=== PATIENT | male | born 1935 | race African-American/Black ===

== ENCOUNTER 2017-02-28 14:20 | Emergency (ER) | payer MEDICARE ==
[2017-02-28] MEDS ORDERED: cloNIDine 0.2 MG TAB ONE (14:47)
[2017-02-28 15:13] LABS: #Basophils 0.1 thou/uL (0.0-0.2); #Eosinphils 0.1 thou/uL (0.0-0.7); #Lymphocytes 1.5 thou/uL (1.20-3.40); #Monocytes 0.4 thou/uL (0.11-0.59); #Neutrophils 2.4 thou/uL (1.40-6.50); %Basophils 1.6 % (0.0-1.0); %Eosinophils 1.9 % (0.0-10.0); %Lymphocytes 33.7 % (21.0-51.0); %Monocytes 9.5 % (0.0-10.0); %Neutrophils 53.3 % (42.0-75.0); Hemoglobin 12.4 g/dL (14.0-18.0); Mean Corpuscular HGB CONC 31.3 g/dL (32.0-36.0); Mean Corpuscular Hemoglobin 26.7 pg (27.0-31.0); Mean Corpuscular Volume 85.2 fl (80.0-94.0); Platelet Count 124 thou/uL (130-400); RBC Distribution Width 13.5 % (11.5-14.5); Red Blood Cell (RBC) Count 4.64 mill/uL (4.70-6.10); White Blood Cell (WBC) Count 4.5 thou/uL (4.8-10.8)
[2017-02-28 15:18] LABS: Anion Gap 12 mmol/L (10-20); BUN (Urea Nitrogen) 19 mg/dL (8.4-25.7); Calc. Creatinine Clearance 0 mL/min (70-130); Calcium 8.8 mg/dL (7.8-10.44); Carbon Dioxide 29 mmol/L (23-31); Chloride 102 mmol/L (98-107); Estimated GFR-MDRD Greater than 90; Glucose 99 mg/dL (83-110); Potassium 3.4 mmol/L (3.5-5.1); Sodium 140 mmol/L (136-145)
[2017-02-28 15:23] LABS: CKMB 6.3 ng/mL (0-6.6); Troponin I 0.017 ng/mL (< 0.028)
== END 2017-02-28 15:39 | disposition home or self-care (01) ==
LOC: NAV ERS 14:20
DX: I10 Essential (primary) hypertension (principal); Z87.891 Personal history of nicotine dependence; Z79.82 Long term (current) use of aspirin; Z79.899 Other long term (current) drug therapy
CPT/HCPCS: 80048; 82553; 84484; 85025

== ENCOUNTER 2018-10-08 17:13 | Emergency (ER) | payer MEDICARE ==
[2018-10-08] MEDS ORDERED: Aspirin Chewable 81 MG TAB ONE (17:38)
[2018-10-08] MEDS ORDERED: Nitroglycerin 0.4 MG TAB (25 Tab Bottle) ONE (17:38)
[2018-10-08 17:49] LABS: #Basophils 0.1 thou/uL (0.0-0.2); #Eosinphils 0.1 thou/uL (0.0-0.7); #Lymphocytes 1.6 thou/uL (1.20-3.40); #Monocytes 0.4 thou/uL (0.11-0.59); #Neutrophils 2.1 thou/uL (1.40-6.50); %Basophils 1.7 % (0.0-1.0); %Eosinophils 2.4 % (0.0-10.0); %Lymphocytes 37.6 % (21.0-51.0); %Monocytes 8.9 % (0.0-10.0); %Neutrophils 49.4 % (42.0-75.0); Hemoglobin 12.8 g/dL (14.0-18.0); Mean Corpuscular HGB CONC 31.1 g/dL (32.0-36.0); Mean Corpuscular Hemoglobin 26.6 pg (27.0-31.0); Mean Corpuscular Volume 85.6 fL (78.0-98.0); Mean Platelet Volume 9.9 fL (7.4-10.4); Platelet Count 185 thou/uL (130-400); RBC Distribution Width 13.3 % (11.5-14.5); Red Blood Cell (RBC) Count 4.81 mill/uL (4.70-6.10); White Blood Cell (WBC) Count 4.3 thou/uL (4.8-10.8)
--- NOTE | 2018-10-08 18:02 | RAD ---
Portable frontal chest radiograph: 10/08/2018 COMPARISON: 04/20/2014 HISTORY: Chest pain FINDINGS: Lungs are clear. Heart and mediastinal contours are stable. There is atherosclerotic calcif ication of the aortic arch. IMPRESSION: No acute findings.
[2018-10-08 18:04] LABS: ALT (SGPT) 16 U/L (8-55); AST (SGOT) 22 U/L (5-34); Albumin 4.1 g/dL (3.4-4.8); Alkaline Phosphatase 60 U/L (40-150); Anion Gap 14 mmol/L (10-20); BUN (Urea Nitrogen) 16 mg/dL (8.4-25.7); Bilirubin, Total 0.3 mg/dL (0.2-1.2); CK (CPK) 381 U/L (30-200); Calc. Creatinine Clearance 0 mL/min (70-130); Calcium 9.9 mg/dL (7.8-10.44); Carbon Dioxide 28 mmol/L (23-31); Chloride 104 mmol/L (98-107); Estimated GFR-MDRD 73; Globulin 3.6 g/dL (2.4-3.5); Glucose 114 mg/dL (83-110); Lipase 89 U/L (8-78); Potassium 3.3 mmol/L (3.5-5.1); Protein, Total 7.7 g/dL (5.8-8.1); Sodium 143 mmol/L (136-145)
== END 2018-10-08 19:06 | disposition short-term general hospital (02) ==
LOC: NAV ERS 17:13
DX: R07.9 Chest pain, unspecified (principal); I10 Essential (primary) hypertension; N40.0 Benign prostatic hyperplasia without lower urinary tract symptoms; Z87.891 Personal history of nicotine dependence; Z79.82 Long term (current) use of aspirin; Z79.899 Other long term (current) drug therapy
CPT/HCPCS: 71045; 80053; 82550; 83690; 83880; 84484; 85025; 93005

== ENCOUNTER 2020-02-21 23:05 | Inpatient (IN) | payer MEDICARE, OTHER ==
[2020-02-21] MEDS ORDERED: cloNIDine 0.1 MG TAB PO PRN (23:45)
[2020-02-22] MEDS: Thiamine 100 MG TAB PO SCH (08:38)
[2020-02-22] MEDS: Calcium Carbonate 600 MG + Vit D TAB PO SCH (08:38)
[2020-02-22] MEDS: Finasteride 5 MG TAB PO SCH (08:38)
[2020-02-22] MEDS: Potassium Chloride 10 MEQ TAB PO SCH (08:38)
[2020-02-22] MEDS: Aspirin 81 mg Enteric Coated Tablet PO SCH ×2 (08:38→20:58)
[2020-02-22] MEDS: Lisinopril 20 MG TAB PO SCH (08:39)
[2020-02-22] MEDS: Senokot S 8.6-50 MG TAB PO SCH ×3 (08:40→20:55)
[2020-02-22] MEDS: Hydrochlorothiazide 25 MG TAB PO SCH (08:41)
[2020-02-22] MEDS: Folic Acid 1 MG TAB PO SCH (08:41)
[2020-02-22] MEDS: Ferrous Gluconate 324 MG TAB PO SCH ×2 (08:59→17:14)
[2020-02-22] MEDS ORDERED: Amlodipine 5 MG TAB PO SCH (09:00)
[2020-02-22] MEDS ORDERED: HYDROcodone/Acetaminophen 5/325 mg Tablet PO PRN ×2 (16:06)
--- NOTE | 2020-02-22 16:43 | HP ---
PRINCIPAL DIAGNOSIS: Osteoarthritis status post left hip replacement for physical therapy. BRIEF HISTORY: This is a pleasant 84-year-old male who recently underwent elective left hip replacement. He apparently did have some postoperative issues with blood pressure, requiring IV hydralazine. He was felt to be a candidate for inpatient rehabilitation and transferred here. He apparently did have episodes of confusion, requiring Seroquel. His Benadryl was discontinued. He apparently drinks 3 to 4 drinks a week, so was started on thiamine and folic acid. Currently, the patient is resting in bed and denies any concerns. He states that he got here late last night and is tired. He apparently refused his lab work this morning. No fever or chills. Pain is well controlled. No family at bedside. PAST MEDICAL HISTORY: 1. Hypertension. 2. Benign prostatic hypertrophy. 3. Seasonal allergic rhinitis. 4. Chronic diastolic congestive heart failure. 5. Osteoarthritis. PAST SURGICAL HISTORY: 1. Lumbar spine surgery in 2013. 2. Recent left total hip replacement. PSYCHOSOCIAL HISTORY: Drinks 3 to 4 drinks a day, but he does that about 3 to 4 times a week and not every day of the week. Denies any tobacco or recreational drug abuse. Active and independent prior to this episode. FAMILY HISTORY: Noncontributory to current admission. ALLERGIES: NO KNOWN DRUG ALLERGIES. MEDICATIONS: He has been transferred here on the following medications. 1. Norvasc 10 mg daily. 2. Ecotrin 81 mg b.i.d. 3. Calcium with vitamin D daily. 4. Iron sulfate 324 b.i.d. 5. Proscar 5 mg daily. 6. Folic acid 1 mg daily. 7. Hydrochlorothiazide 25 daily. 8. Zestril 20 daily. 9. Toprol-XL 25 mg daily. 10. Potassium 10 mEq daily. 11. Seroquel 12.5 at bedtime. 12. Flomax 0.8 mg at bedtime. 13. Thiamine 100 mg daily. REVIEW OF SYSTEMS: GENERAL: The patient denies any fever or changes in weight or bowel habits. CARDIOVASCULAR SYSTEM: Denies any chest pain, shortness of breath, palpitations, PND, orthopnea, or pedal edema. RESPIRATORY SYSTEM: Denies any chronic cough, expectoration, or pleuritic-type chest pain. GASTROINTESTINAL SYSTEM: Denies any nausea, vomiting, diarrhea, constipation, hematemesis, melena, or hematochezia. GENITOURINARY SYSTEM: He does have occasional frequency and urgency, but denies any dysuria or hematuria. EXTREMITIES: Does complain of left hip and leg pain. CENTRAL NERVOUS SYSTEM: Denies any focal numbness, weakness, or fainting spells. HEENT: Denies any changes with speech, vision, hearing, or swallowing. SKIN: Denies any rash. PHYSICAL EXAMINATION: GENERAL: A pleasant 84-year-old male, resting comfortably in bed and denies any concerns. He is alert, awake, and oriented x3. VITAL SIGNS: He is afebrile, heart rate is 98, respirations 20, oxygen saturation 98% on room air, and blood pressure 134/82. HEENT: Normocephalic and atraumatic. Pupils are equally reacting to light and accommodation. Extraocular muscles intact. No JVD, thyromegaly, cervical adenopathy, or throat exudates. No carotid bruits. CARDIOVASCULAR SYSTEM: S1 and S2 plus. Rate and rhythm regular. RESPIRATORY SYSTEM: Normal vesicular breath sounds heard in all lung kang. ABDOMEN: Soft and nontender. Bowel sounds heard in all quadrants. EXTREMITIES: Without cyanosis or clubbing. Left hip incision with dressing. CENTRAL NERVOUS SYSTEM: Generalized weakness, otherwise nonfocal. LABORATORY VALUES: From this morning, the patient did refuse lab work. Last one shows the hemoglobin and hematocrit of 10 and 31.2. IMPRESSION: 1. Osteoarthritis status post left hip replacement. 2. Hypertension. 3. Chronic diastolic congestive heart failure. 4. Seasonal allergic rhinitis. 5. Anemia, possibly due to acute blood loss. 6. Episodes of agitation and confusion. 7. Benign prostatic hypertrophy. PLAN: 1. Continue discharge medications from previous hospital. Make sure he is on pain medications. 2. Change timing on amlodipine to bedtime as all his blood pressure medicines are scheduled for the morning. 3. Orthopedic precautions and incision care. 4. DVT prophylaxis per Orthopedic recommendations. 5. Decubitus precautions. 6. Stress ulcer prophylaxis. 7. PT/OT eval and treat. 8. Routine laboratory values. 9. Nutritional support with heart healthy diet. 10. Estimated length of stay 7 to 10 days. 11. No family at bedside. 12. Discussed with the patient in detail. All questions answered. Job ID: [id number]
[2020-02-22] MEDS ORDERED: Amlodipine 5 MG TAB ONE (20:53)
[2020-02-22] MEDS: Tamsulosin HCl 0.4 MG CAP PO SCH (20:56)
[2020-02-22] MEDS: Amlodipine 5 MG TAB PO SCH (20:57)
[2020-02-22] MEDS: Acetaminophen 500 MG TAB PO PRN (20:57)
[2020-02-23 03:51] VITALS: BMI 34.4
[2020-02-23] MEDS: Aspirin 81 mg Enteric Coated Tablet PO SCH ×2 (08:46→21:19)
[2020-02-23] MEDS: Calcium Carbonate 600 MG + Vit D TAB PO SCH (08:46)
[2020-02-23] MEDS: Finasteride 5 MG TAB PO SCH (08:47)
[2020-02-23] MEDS: Folic Acid 1 MG TAB PO SCH (08:47)
[2020-02-23] MEDS: Potassium Chloride 10 MEQ TAB PO SCH (08:47)
[2020-02-23] MEDS: Ferrous Gluconate 324 MG TAB PO SCH ×2 (08:47→17:37)
[2020-02-23] MEDS: Thiamine 100 MG TAB PO SCH (08:47)
[2020-02-23] MEDS: Lisinopril 20 MG TAB PO SCH (08:47)
[2020-02-23] MEDS: Hydrochlorothiazide 25 MG TAB PO SCH (08:47)
[2020-02-23] MEDS: Senokot S 8.6-50 MG TAB PO SCH ×2 (08:47→21:19)
--- NOTE | 2020-02-23 16:02 | PRG ---
DATE OF SERVICE: 02/23/2020 SUBJECTIVE: Mr. Marion is up in his chair. He apparently had a good lunch. He states that he is feeling better. He denies any questions or concerns. He is agreeable for blood test tomorrow as baseline. OBJECTIVE: VITAL SIGNS: He is afebrile. Heart rate is 86, respirations 18, oxygen saturation 94% on room air, blood pressure 140/66. CARDIOVASCULAR: S1, S2 plus. RESPIRATORY: Normal vesicular breath sounds. ABDOMEN: Soft, nontender. Bowel sounds heard in all quadrants. EXTREMITIES: Without cyanosis or clubbing. Trace left leg edema. Left hip incision with dressing. CENTRAL NERVOUS SYSTEM: Generalized weakness. IMPRESSION: 1. Hypertension. 2. Osteoarthritis, status post left hip arthroplasty. 3. Benign prostatic hypertrophy. 4. Seasonal allergic rhinitis. 5. Chronic diastolic congestive heart failure. PLAN: 1. Continue current medications. 2. Heart-healthy diet. 3. Orthopedic precautions. 4. Morales catheter care. 5. Voiding trial probably on Monday. 6. Continue Flomax. 7. Physical therapy. 8. Recheck CBC and BMP tomorrow. 9. Discussed with the patient in detail. All questions answered. Job ID: [id number]
[2020-02-23] MEDS: Tamsulosin HCl 0.4 MG CAP PO SCH (21:18)
[2020-02-23] MEDS: Amlodipine 5 MG TAB PO SCH (21:19)
[2020-02-24 05:23] LABS: #Basophils 0.1 thou/uL (0.0-0.2); #Eosinphils 0.1 thou/uL (0.0-0.7); #Lymphocytes 1.5 thou/uL (1.20-3.40); #Monocytes 0.5 thou/uL (0.11-0.59); #Neutrophils 2.6 thou/uL (1.40-6.50); %Basophils 1.6 % (0.0-1.0); %Eosinophils 2.9 % (0.0-10.0); %Lymphocytes 32.2 % (21.0-51.0); %Monocytes 9.5 % (0.0-10.0); %Neutrophils 53.9 % (42.0-75.0); Hemoglobin 9.1 g/dL (14.0-18.0); Mean Corpuscular HGB CONC 31.8 g/dL (32.0-36.0); Mean Corpuscular Hemoglobin 27.1 pg (27.0-31.0); Mean Corpuscular Volume 85.1 fL (78.0-98.0); Mean Platelet Volume 8.1 fL (7.4-10.4); Platelet Count 141 thou/uL (130-400); Red Blood Cell (RBC) Count 3.37 mill/uL (4.70-6.10); White Blood Cell (WBC) Count 4.8 thou/uL (4.8-10.8)
[2020-02-24 05:38] LABS: Anion Gap 12 mmol/L (10-20); BUN (Urea Nitrogen) 15 mg/dL (8.4-25.7); Calc. Creatinine Clearance 96 mL/min (70-130); Calcium 8.6 mg/dL (7.8-10.44); Carbon Dioxide 30 mmol/L (23-31); Chloride 103 mmol/L (98-107); Glucose 99 mg/dL (83-110); Potassium 3.1 mmol/L (3.5-5.1); Sodium 142 mmol/L (136-145)
[2020-02-24] MEDS: Ferrous Gluconate 324 MG TAB PO SCH ×2 (09:33→17:15)
[2020-02-24] MEDS: Senokot S 8.6-50 MG TAB PO SCH ×2 (09:34→21:24)
[2020-02-24] MEDS: Calcium Carbonate 600 MG + Vit D TAB PO SCH (09:34)
[2020-02-24] MEDS: Potassium Chloride 10 MEQ TAB PO SCH (09:35)
[2020-02-24] MEDS: Lisinopril 20 MG TAB PO SCH (09:35)
[2020-02-24] MEDS: Hydrochlorothiazide 25 MG TAB PO SCH (09:35)
[2020-02-24] MEDS: Folic Acid 1 MG TAB PO SCH (09:36)
[2020-02-24] MEDS: Aspirin 81 mg Enteric Coated Tablet PO SCH ×2 (09:36→21:24)
[2020-02-24] MEDS: Thiamine 100 MG TAB PO SCH (09:36)
[2020-02-24] MEDS: Acetaminophen 500 MG TAB PO PRN (09:37)
[2020-02-24] MEDS: Finasteride 5 MG TAB PO SCH (09:39)
--- NOTE | 2020-02-24 13:07 | PRG ---
DATE OF SERVICE: 02/24/2020 SUBJECTIVE: Mr. Marion is up in his chair. He just finished his lunch. He apparently had both sessions of therapy this morning. He cannot wait to get the Morales catheter out. Denies any questions or concerns. Pain is well controlled. No family at bedside. OBJECTIVE: VITAL SIGNS: He is afebrile, heart rate 80, respirations 18, oxygen saturation 93% on room air, and blood pressure 144/67. CARDIOVASCULAR SYSTEM: S1 and S2 plus. RESPIRATORY SYSTEM: Normal vesicular breath sounds. ABDOMEN: Soft, nontender. Bowel sounds heard in all quadrants. EXTREMITIES: Without cyanosis or clubbing. CENTRAL NERVOUS SYSTEM: Generalized weakness, otherwise nonfocal. IMPRESSION: 1. Urinary retention, likely due to benign prostatic hypertrophy as a Morales catheter. 2. Hypertension. 3. Seasonal allergic rhinitis. 4. Chronic diastolic congestive heart failure. 5. Osteoarthritis. 6. Left hip replacement. PLAN: 1. Continue current medications. 2. Low-sodium diet. 3. Orthopedic precautions. 4. Incision care. 5. DVT prophylaxis per Orthopedic recommendations. 6. Morales catheter care. 7. Physical Therapy. 8. Routine laboratory values. 9. Anticipated discontinuing the Morales catheter soon. Job ID: [id number]
[2020-02-24] MEDS: Tamsulosin HCl 0.4 MG CAP PO SCH (21:24)
[2020-02-24] MEDS: Amlodipine 5 MG TAB PO SCH (21:25)
[2020-02-25] MEDS: Calcium Carbonate 600 MG + Vit D TAB PO SCH (08:31)
[2020-02-25] MEDS: Folic Acid 1 MG TAB PO SCH (08:32)
[2020-02-25] MEDS: Aspirin 81 mg Enteric Coated Tablet PO SCH ×2 (08:32→21:54)
[2020-02-25] MEDS: Lisinopril 20 MG TAB PO SCH (08:32)
[2020-02-25] MEDS: Potassium Chloride 10 MEQ TAB PO SCH (08:32)
[2020-02-25] MEDS: Ferrous Gluconate 324 MG TAB PO SCH ×2 (08:32→17:00)
[2020-02-25] MEDS: Acetaminophen 500 MG TAB PO PRN (08:33)
[2020-02-25] MEDS: Senokot S 8.6-50 MG TAB PO SCH ×2 (08:36→21:54)
[2020-02-25] MEDS: Hydrochlorothiazide 25 MG TAB PO SCH (08:37)
[2020-02-25] MEDS: Thiamine 100 MG TAB PO SCH (08:37)
[2020-02-25] MEDS: Finasteride 5 MG TAB PO SCH (08:38)
--- NOTE | 2020-02-25 13:16 | PRG ---
DATE OF SERVICE: 02/25/2020 SUBJECTIVE: Mr. Marion is up in his chair and he hates this very chair. He denies any other concerns or questions. OBJECTIVE: VITAL SIGNS: He is afebrile, heart rate 84, respirations 19, oxygen saturation 96% on room air, blood pressure 130/63. CARDIOVASCULAR SYSTEM: S1-S2 plus. RESPIRATORY SYSTEM: Normal vesicular breath sounds. ABDOMEN: Soft, nontender. Bowel sounds heard in all quadrants. EXTREMITIES: Without cyanosis or clubbing. Morales catheter in place. CENTRAL NERVOUS SYSTEM: Improving deconditioning. IMPRESSION: 1. Status post left hip replacement. 2. Osteoarthritis. 3. Hypertension. 4. Chronic diastolic congestive heart failure. 5. He is not allergic to rhinitis. 6. Possible benign prostatic hypertrophy. PLAN: 1. Continue current medications. 2. Nutritional support with low sodium diet. 3. Orthopedic precautions. 4. DVT prophylaxis per Orthopedic recommendations. 5. Decubitus precautions. 6. Stress ulcer prophylaxis. 7. Routine laboratory values. 8. Anticipate voiding trial tomorrow. Job ID: [id number]
[2020-02-25] MEDS: Amlodipine 5 MG TAB PO SCH (21:53)
[2020-02-25] MEDS: Tamsulosin HCl 0.4 MG CAP PO SCH (21:54)
[2020-02-26] MEDS: Folic Acid 1 MG TAB PO SCH (08:20)
[2020-02-26] MEDS: Finasteride 5 MG TAB PO SCH (08:20)
[2020-02-26] MEDS: Calcium Carbonate 600 MG + Vit D TAB PO SCH (08:20)
[2020-02-26] MEDS: Senokot S 8.6-50 MG TAB PO SCH ×2 (08:21→20:35)
[2020-02-26] MEDS: Aspirin 81 mg Enteric Coated Tablet PO SCH ×2 (08:21→20:35)
[2020-02-26] MEDS: Lisinopril 20 MG TAB PO SCH (08:21)
[2020-02-26] MEDS: Potassium Chloride 10 MEQ TAB PO SCH (08:21)
[2020-02-26] MEDS: Hydrochlorothiazide 25 MG TAB PO SCH (08:22)
[2020-02-26] MEDS: Ferrous Gluconate 324 MG TAB PO SCH ×2 (08:22→17:46)
[2020-02-26] MEDS: Thiamine 100 MG TAB PO SCH (08:22)
--- NOTE | 2020-02-26 13:03 | PRG ---
DATE OF SERVICE: 02/26/2020 SUBJECTIVE: Mr. Marion had the Morales catheter removed last night as it was . He has had no issues with voiding. His postvoid bladder scans have been pretty much close to 0. The patient is resting in bed and happy with his progress. OBJECTIVE: VITAL SIGNS: He is afebrile, heart rate 71, respirations 18, oxygen saturation 94% on room air, blood pressure 145/64. CARDIOVASCULAR SYSTEM: S1 and S2 plus. RESPIRATORY SYSTEM: Normal vesicular breath sounds. ABDOMEN: Soft, nontender. Bowel sounds heard in all quadrants. EXTREMITIES: Without cyanosis, clubbing. Hip incision with dressing. CENTRAL NERVOUS SYSTEM: Improving deconditioning. IMPRESSION: 1. Status post left hip arthroplasty. 2. Hypertension. 3. Chronic diastolic congestive heart failure. 4. Osteoarthritis. 5. Allergic rhinitis. 6. Benign prostatic hypertrophy. PLAN: 1. Continue current medications. 2. Nutritional support with low-sodium diet. 3. Monitor blood pressure and adjust medications. 4. DVT prophylaxis per Orthopedic's recommendations. 5. Decubitus precautions. 6. Stress ulcer prophylaxis. 7. Orthopedic precautions and incision care. 8. Recheck CBC and BMP tomorrow. 9. Dr. Holden on-call for 5 p.m. [email or web address]. Job ID: [id number]
[2020-02-26] MEDS: Tamsulosin HCl 0.4 MG CAP PO SCH (20:34)
[2020-02-26] MEDS: Amlodipine 5 MG TAB PO SCH (20:35)
[2020-02-27 05:40] LABS: Anion Gap 12 mmol/L (10-20); BUN (Urea Nitrogen) 15 mg/dL (8.4-25.7); Calc. Creatinine Clearance 93 mL/min (70-130); Calcium 8.8 mg/dL (7.8-10.44); Carbon Dioxide 30 mmol/L (23-31); Chloride 101 mmol/L (98-107); Glucose 101 mg/dL (83-110); Potassium 3.1 mmol/L (3.5-5.1); Sodium 140 mmol/L (136-145)
[2020-02-27 05:41] LABS: #Basophils 0.1 thou/uL (0.0-0.2); #Eosinphils 0.1 thou/uL (0.0-0.7); #Lymphocytes 1.4 thou/uL (1.20-3.40); #Monocytes 0.5 thou/uL (0.11-0.59); #Neutrophils 2.4 thou/uL (1.40-6.50); %Basophils 1.1 % (0.0-1.0); %Eosinophils 3.4 % (0.0-10.0); %Lymphocytes 31.2 % (21.0-51.0); %Monocytes 10.6 % (0.0-10.0); %Neutrophils 53.7 % (42.0-75.0); Hemoglobin 9.1 g/dL (14.0-18.0); Mean Corpuscular HGB CONC 31.4 g/dL (32.0-36.0); Mean Corpuscular Hemoglobin 26.8 pg (27.0-31.0); Mean Corpuscular Volume 85.4 fL (78.0-98.0); Mean Platelet Volume 7.4 fL (7.4-10.4); Platelet Count 186 thou/uL (130-400); RBC Distribution Width 14.2 % (11.5-14.5); Red Blood Cell (RBC) Count 3.38 mill/uL (4.70-6.10); White Blood Cell (WBC) Count 4.4 thou/uL (4.8-10.8)
[2020-02-27] MEDS: Aspirin 81 mg Enteric Coated Tablet PO SCH ×2 (08:06→20:52)
[2020-02-27] MEDS: Ferrous Gluconate 324 MG TAB PO SCH ×2 (08:06→17:09)
[2020-02-27] MEDS: Calcium Carbonate 600 MG + Vit D TAB PO SCH (08:06)
[2020-02-27] MEDS: Finasteride 5 MG TAB PO SCH (08:07)
[2020-02-27] MEDS: Lisinopril 20 MG TAB PO SCH (08:07)
[2020-02-27] MEDS: Hydrochlorothiazide 25 MG TAB PO SCH (08:07)
[2020-02-27] MEDS: Folic Acid 1 MG TAB PO SCH (08:07)
[2020-02-27] MEDS: Potassium Chloride 10 MEQ TAB PO SCH (08:08)
[2020-02-27] MEDS: Thiamine 100 MG TAB PO SCH (08:08)
[2020-02-27] MEDS: Senokot S 8.6-50 MG TAB PO SCH ×2 (08:08→20:51)
--- NOTE | 2020-02-27 10:04 | PRG ---
DATE OF SERVICE: 02/27/2020 SUBJECTIVE: Mr. Marion is doing well with no issues with voiding, status post removal of the Morales catheter. His potassium was low at 3.1 and will need to be replaced. REVIEW OF SYSTEMS: Denies any fever, chills, cough, congestion, chest pain, palpitations, nausea, vomiting, or diarrhea. OBJECTIVE: VITAL SIGNS: Temperature 98.9, pulse 73 to 75, blood pressure 151/66 to 157/67, respirations 20, and O2 saturations 98% on room air. GENERAL: Well-appearing, well-developed 84-year-old male seen walking around with physical therapy, doing well. CARDIOVASCULAR: Regular rate and rhythm. No murmurs, gallops, or rubs. RESPIRATORY: Clear to auscultation bilaterally. No wheezes. ABDOMEN: Soft and nontender to palpation. Bowel sounds positive in all four quadrants. EXTREMITIES: No cyanosis or clubbing. Hip incision seen; clean, dry, and intact. IMPRESSION: 1. Status post left hip arthroplasty. 2. Hypertension. 3. Heart failure with preserved ejection fraction. 4. Osteoarthritis. 5. Allergic rhinitis. 6. Benign prostatic hyperplasia. PLAN: 1. Continue current medications. 2. Nutritional support with low sodium diet. 3. Replace potassium with 40 mEq of p.o. potassium chloride. 4. Repeat BMP. 5. Monitor blood pressure and adjust medications. 6. DVT prophylaxis. 7. Decubitus precautions. 8. Stress ulcer prophylaxis. 9. Orthopedic precautions and incision care. 10. Follow up with [facility]. Job ID: [id number]
[2020-02-27] MEDS ORDERED: Potassium Chloride 20 MEQ TAB PO SCH (10:15)
[2020-02-27] MEDS: Acetaminophen 500 MG TAB PO PRN (10:44)
[2020-02-27] MEDS: Tamsulosin HCl 0.4 MG CAP PO SCH (20:51)
[2020-02-27] MEDS: Amlodipine 5 MG TAB PO SCH (20:51)
[2020-02-28] MEDS: Potassium Chloride 10 MEQ TAB PO SCH (09:32)
[2020-02-28] MEDS: Lisinopril 20 MG TAB PO SCH (09:33)
[2020-02-28] MEDS: Folic Acid 1 MG TAB PO SCH (09:33)
[2020-02-28] MEDS: Ferrous Gluconate 324 MG TAB PO SCH ×2 (09:33→18:27)
[2020-02-28] MEDS: Finasteride 5 MG TAB PO SCH (09:33)
[2020-02-28] MEDS: Hydrochlorothiazide 25 MG TAB PO SCH (09:34)
[2020-02-28] MEDS: Thiamine 100 MG TAB PO SCH (09:34)
[2020-02-28] MEDS: Calcium Carbonate 600 MG + Vit D TAB PO SCH (09:34)
[2020-02-28] MEDS: Aspirin 81 mg Enteric Coated Tablet PO SCH ×2 (09:34→20:55)
[2020-02-28] MEDS: Senokot S 8.6-50 MG TAB PO SCH ×2 (09:35→20:55)
[2020-02-28] MEDS: Acetaminophen 500 MG TAB PO PRN (09:35)
[2020-02-28] MEDS: Tamsulosin HCl 0.4 MG CAP PO SCH (20:55)
[2020-02-28] MEDS: Amlodipine 5 MG TAB PO SCH (20:55)
[2020-02-29] MEDS: Lisinopril 20 MG TAB PO SCH (08:22)
[2020-02-29] MEDS: Potassium Chloride 10 MEQ TAB PO SCH (08:22)
[2020-02-29] MEDS: Thiamine 100 MG TAB PO SCH (08:22)
[2020-02-29] MEDS: Hydrochlorothiazide 25 MG TAB PO SCH (08:23)
[2020-02-29] MEDS: Senokot S 8.6-50 MG TAB PO SCH ×2 (08:23→20:15)
[2020-02-29] MEDS: Folic Acid 1 MG TAB PO SCH (08:23)
[2020-02-29] MEDS: Aspirin 81 mg Enteric Coated Tablet PO SCH ×2 (08:23→20:15)
[2020-02-29] MEDS: Ferrous Gluconate 324 MG TAB PO SCH ×2 (08:23→17:55)
[2020-02-29] MEDS: Finasteride 5 MG TAB PO SCH (08:23)
[2020-02-29] MEDS: Calcium Carbonate 600 MG + Vit D TAB PO SCH (08:23)
[2020-02-29] MEDS: Amlodipine 5 MG TAB PO SCH (20:15)
[2020-02-29] MEDS: Tamsulosin HCl 0.4 MG CAP PO SCH (20:16)
[2020-03-01] MEDS: Lisinopril 20 MG TAB PO SCH (08:31)
[2020-03-01] MEDS: Potassium Chloride 10 MEQ TAB PO SCH (08:31)
[2020-03-01] MEDS: Hydrochlorothiazide 25 MG TAB PO SCH (08:32)
[2020-03-01] MEDS: Aspirin 81 mg Enteric Coated Tablet PO SCH ×2 (08:32→21:02)
[2020-03-01] MEDS: Ferrous Gluconate 324 MG TAB PO SCH ×2 (08:32→17:48)
[2020-03-01] MEDS: Finasteride 5 MG TAB PO SCH (08:32)
[2020-03-01] MEDS: Thiamine 100 MG TAB PO SCH (08:35)
[2020-03-01] MEDS: Senokot S 8.6-50 MG TAB PO SCH ×2 (08:35→21:01)
[2020-03-01] MEDS: Folic Acid 1 MG TAB PO SCH (08:36)
[2020-03-01] MEDS: Calcium Carbonate 600 MG + Vit D TAB PO SCH (08:38)
--- NOTE | 2020-03-01 10:08 | PRG ---
DATE OF SERVICE: 03/01/2020 SUBJECTIVE: The patient overall is doing well and progressing well with therapy. He enjoys his time working with therapy and getting stronger. No acute events overnight. The patient's blood pressure is improving. REVIEW OF SYSTEMS: Denies any fever, chills, cough, congestion, chest pain, palpitations, nausea, vomiting, diarrhea, shortness of breath. PHYSICAL EXAMINATION: VITAL SIGNS: Temperature 98.3, pulse 61 to 70, blood pressure 135/63 to 144/64, respirations 18, O2 sats 95% to 96% on room air. GENERAL: Well-appearing, well-developed 84-year-old male, lying in bed with no acute distress. CARDIOVASCULAR: Regular rate and rhythm without murmurs, gallops, or rubs. RESPIRATORY: Clear to auscultation bilaterally. No wheezes. ABDOMEN: Soft, nontender to palpation. Bowel sounds positive in all four quadrants. EXTREMITIES: No cyanosis or clubbing. IMPRESSION: 1. Status post left hip arthroplasty. 2. Hypertension. 3. Heart failure with preserved ejection fraction. 4. Osteoarthritis. 5. Allergic rhinitis. 6. Benign prostatic hyperplasia. PLAN: 1. Continue current medications. 2. BP well controlled. Continue blood pressure medications. 3. Nutritional support with low-sodium diet. 4. Follow up with [facility] in a.m. to monitor potassium levels. The patient is asymptomatic at this time. 5. DVT prophylaxis. 6. Decubitus precautions. 7. Stress ulcer prophylaxis. 8. Orthopedic precautions with wound care for incision site. Job ID: [id number]
[2020-03-01] MEDS: Amlodipine 5 MG TAB PO SCH (21:02)
[2020-03-01] MEDS: Tamsulosin HCl 0.4 MG CAP PO SCH (21:02)
[2020-03-02 05:41] LABS: #Basophils 0.1 thou/uL (0.0-0.2); #Eosinphils 0.2 thou/uL (0.0-0.7); #Lymphocytes 1.5 thou/uL (1.20-3.40); #Monocytes 0.6 thou/uL (0.11-0.59); #Neutrophils 2.2 thou/uL (1.40-6.50); %Basophils 1.6 % (0.0-1.0); %Eosinophils 4.6 % (0.0-10.0); %Lymphocytes 32.5 % (21.0-51.0); %Monocytes 13.1 % (0.0-10.0); %Neutrophils 48.2 % (42.0-75.0); Hemoglobin 8.8 g/dL (14.0-18.0); Mean Corpuscular HGB CONC 31.1 g/dL (32.0-36.0); Mean Corpuscular Hemoglobin 26.5 pg (27.0-31.0); Mean Corpuscular Volume 85.4 fL (78.0-98.0); Mean Platelet Volume 7.9 fL (7.4-10.4); Platelet Count 210 thou/uL (130-400); RBC Distribution Width 14.1 % (11.5-14.5); Red Blood Cell (RBC) Count 3.32 mill/uL (4.70-6.10); White Blood Cell (WBC) Count 4.6 thou/uL (4.8-10.8)
[2020-03-02 05:52] LABS: Anion Gap 10 mmol/L (10-20); BUN (Urea Nitrogen) 16 mg/dL (8.4-25.7); Calc. Creatinine Clearance 96 mL/min (70-130); Calcium 8.8 mg/dL (7.8-10.44); Carbon Dioxide 31 mmol/L (23-31); Chloride 102 mmol/L (98-107); Glucose 90 mg/dL (83-110); Potassium 3.4 mmol/L (3.5-5.1); Sodium 140 mmol/L (136-145)
[2020-03-02] MEDS: Ferrous Gluconate 324 MG TAB PO SCH ×2 (08:29→21:32)
[2020-03-02] MEDS: Aspirin 81 mg Enteric Coated Tablet PO SCH ×2 (08:30→21:37)
[2020-03-02] MEDS: Hydrochlorothiazide 25 MG TAB PO SCH (08:30)
[2020-03-02] MEDS: Potassium Chloride 10 MEQ TAB PO SCH (08:30)
[2020-03-02] MEDS: Senokot S 8.6-50 MG TAB PO SCH ×2 (08:31→21:40)
[2020-03-02] MEDS: Finasteride 5 MG TAB PO SCH (08:31)
[2020-03-02] MEDS: Lisinopril 20 MG TAB PO SCH (08:32)
[2020-03-02] MEDS: Thiamine 100 MG TAB PO SCH (08:32)
[2020-03-02] MEDS: Folic Acid 1 MG TAB PO SCH (08:33)
[2020-03-02] MEDS: Calcium Carbonate 600 MG + Vit D TAB PO SCH (08:33)
--- NOTE | 2020-03-02 13:20 | PRG ---
DATE OF SERVICE: SUBJECTIVE: Mr. Marion is resting in bed. He denies any complaints. He apparently had a good weekend. He feels like he is getting stronger. Nursing notes that he has not needed any intermittent catheterization and advised them to DC bladder scan if he has not needed any catheterization in 48 hours. He apparently has a followup appointment with his orthopedic surgeon on Monday at 2:00 p.m. and transportation has already been arranged. OBJECTIVE: VITAL SIGNS: He is afebrile, heart rate 68, respirations 18, oxygen saturation 93% on room air, blood pressure 172/78. CARDIOVASCULAR: S1 and S2 plus. RESPIRATORY: Normal vesicular breath sounds. ABDOMEN: Soft and nontender. Bowel sounds heard in all quadrants. EXTREMITIES: Without cyanosis or clubbing. CENTRAL NERVOUS SYSTEM: Grossly nonfocal. IMPRESSION: 1. Status post left hip arthroplasty. 2. Resolved urinary retention. 3. Improving deconditioning. 4. Hypertension. 5. Chronic diastolic congestive heart failure. 6. Allergic rhinitis. PLAN: 1. Continue current medications. 2. Nutritional support with low-sodium diet. 3. Orthopedic precautions. 4. Incision care. 5. Physical therapy. 6. Routine laboratory values. 7. DC bladder scan. 8. Discussed with the patient and nursing in detail. All questions answered. Job ID: [id number]
[2020-03-02] MEDS: Amlodipine 5 MG TAB PO SCH (21:35)
[2020-03-02] MEDS: Tamsulosin HCl 0.4 MG CAP PO SCH (21:37)
[2020-03-03] MEDS: Lisinopril 20 MG TAB PO SCH (09:16)
[2020-03-03] MEDS: Finasteride 5 MG TAB PO SCH (09:16)
[2020-03-03] MEDS: Ferrous Gluconate 324 MG TAB PO SCH ×2 (09:16→17:49)
[2020-03-03] MEDS: Senokot S 8.6-50 MG TAB PO SCH ×2 (09:16→20:48)
[2020-03-03] MEDS: Thiamine 100 MG TAB PO SCH (09:17)
[2020-03-03] MEDS: Hydrochlorothiazide 25 MG TAB PO SCH (09:17)
[2020-03-03] MEDS: Aspirin 81 mg Enteric Coated Tablet PO SCH ×2 (09:17→20:48)
[2020-03-03] MEDS: Potassium Chloride 10 MEQ TAB PO SCH (09:17)
[2020-03-03] MEDS: Folic Acid 1 MG TAB PO SCH (09:17)
[2020-03-03] MEDS: Calcium Carbonate 600 MG + Vit D TAB PO SCH (09:31)
--- NOTE | 2020-03-03 13:24 | PRG ---
DATE OF SERVICE: SUBJECTIVE: Mr. Marion is up on the side of his bed getting ready to eat his lunch. He denies any questions or concerns. He states that he just feels a little weak today. Denies any chest pain or shortness of breath. Denies any GI or symptoms. OBJECTIVE: VITAL SIGNS: He is afebrile, heart rate 60, respirations 18, oxygen saturation 93% on room air, blood pressure 175/83. CARDIOVASCULAR: S1 and S2 plus. Rate and rhythm regular. RESPIRATORY: Normal vesicular breath sounds. ABDOMEN: Soft and nontender. Bowel sounds heard in all quadrants. EXTREMITIES: Without cyanosis or clubbing. Hip incision is healthy. CENTRAL NERVOUS SYSTEM: Generalized weakness, otherwise nonfocal. IMPRESSION: 1. Status post left hip arthroplasty. 2. Osteoarthritis. 3. Hypertension. 4. Resolved urinary retention. 5. Chronic diastolic congestive heart failure and elevated blood pressure today. PLAN: 1. Continue current medications. 2. Heart healthy diet. 3. DVT prophylaxis. 4. Decubitus precautions. 5. Stress ulcer prophylaxis. 6. Routine laboratory values. 7. Change timing on lisinopril and HCTZ to 6 in the morning. Job ID: [id number]
[2020-03-03] MEDS: Tamsulosin HCl 0.4 MG CAP PO SCH (20:49)
[2020-03-03] MEDS: Amlodipine 5 MG TAB PO SCH (20:49)
[2020-03-04] MEDS: Lisinopril 20 MG TAB PO SCH (06:10)
[2020-03-04] MEDS: Hydrochlorothiazide 25 MG TAB PO SCH (06:10)
[2020-03-04] MEDS: Finasteride 5 MG TAB PO SCH (07:55)
[2020-03-04] MEDS: Aspirin 81 mg Enteric Coated Tablet PO SCH ×2 (07:56→21:22)
[2020-03-04] MEDS: Folic Acid 1 MG TAB PO SCH (07:56)
[2020-03-04] MEDS: Senokot S 8.6-50 MG TAB PO SCH ×2 (07:56→21:23)
[2020-03-04] MEDS: Ferrous Gluconate 324 MG TAB PO SCH ×2 (07:56→18:25)
[2020-03-04] MEDS: Thiamine 100 MG TAB PO SCH (07:57)
[2020-03-04] MEDS: Potassium Chloride 10 MEQ TAB PO SCH (07:57)
[2020-03-04] MEDS: Calcium Carbonate 600 MG + Vit D TAB PO SCH (07:58)
--- NOTE | 2020-03-04 14:29 | PRG ---
DATE OF SERVICE: 03/04/2020 SUBJECTIVE: Mr. Marion is doing well. Denies any complaints. He has an appointment with his orthopedic surgeon this afternoon. Therapy feels that he should be ready for discharge by Monday. The patient denies any concerns or questions. OBJECTIVE: VITAL SIGNS: He is afebrile, heart rate 65, respirations 18, oxygen saturation 96% on room air, blood pressure is 148/68. CARDIOVASCULAR: S1, S2 plus. RESPIRATORY: Normal vesicular breath sounds. ABDOMEN: Soft, nontender. Bowel sounds heard in all quadrants. EXTREMITIES: Without cyanosis or clubbing. CENTRAL NERVOUS SYSTEM: Generalized weakness. IMPRESSION: 1. Status post left hip arthroplasty. 2. Hypertension. 3. Chronic diastolic congestive heart failure. 4. Osteoarthritis. 5. Resolving urinary retention. PLAN: 1. Continue current medications. 2. Heart healthy diet. 3. Orthopedic precautions. 4. Discharge planning. 5. DVT prophylaxis. 6. Decubitus precautions. 7. Dr. Shook on-call this weekend. Job ID: [id number]
[2020-03-04] MEDS: Amlodipine 5 MG TAB PO SCH (21:22)
[2020-03-04] MEDS: Tamsulosin HCl 0.4 MG CAP PO SCH (21:22)
[2020-03-05] MEDS: Lisinopril 20 MG TAB PO SCH (05:25)
[2020-03-05] MEDS: Hydrochlorothiazide 25 MG TAB PO SCH (05:25)
[2020-03-05] MEDS: Folic Acid 1 MG TAB PO SCH (07:56)
[2020-03-05] MEDS: Ferrous Gluconate 324 MG TAB PO SCH ×2 (07:56→17:13)
[2020-03-05] MEDS: Potassium Chloride 10 MEQ TAB PO SCH (07:56)
[2020-03-05] MEDS: Thiamine 100 MG TAB PO SCH (07:56)
[2020-03-05] MEDS: Calcium Carbonate 600 MG + Vit D TAB PO SCH (07:56)
[2020-03-05] MEDS: Finasteride 5 MG TAB PO SCH (07:57)
[2020-03-05] MEDS: Aspirin 81 mg Enteric Coated Tablet PO SCH ×2 (07:57→20:58)
[2020-03-05] MEDS: Senokot S 8.6-50 MG TAB PO SCH ×2 (07:57→20:58)
--- NOTE | 2020-03-05 19:31 | PRG ---
DATE OF SERVICE: 03/05/2020 This is a patient of Dr. Karolina Gayle. SUBJECTIVE: The patient has been told by Dr. Marinelli that he is ready for discharge home on Monday. He has seen his orthopedic surgeon yesterday, has been cleared to return in 30 days. The patient, however, states he did not realize he is being discharged home and advised him that his therapy will be discontinued tomorrow and Medicare will not continue to authorize his stay. He states that he can go home, but he would like to stay if therapy will continue. OBJECTIVE: VITAL SIGNS: Blood pressure 163/72, pulse 72, temperature 98.8, pulse 70, respirations 18, and O2 saturations 95% on room air. SKIN: Left lateral hip incision healed. LUNGS: Clear. CARDIAC: Regular rhythm. ABDOMEN: Soft and nontender. NEUROLOGICAL: Shows no focal findings. ASSESSMENT: 1. Resolving left hip arthroplasty. 2. Hypertension, controlled to goal. 3. Compensated diastolic heart failure. 4. Resolved urinary retention. PLAN: Discuss with the therapy tomorrow and if the patient is indeed finished with therapy, discharge home tomorrow. Job ID: [id number]
[2020-03-05] MEDS: Tamsulosin HCl 0.4 MG CAP PO SCH (20:58)
[2020-03-05] MEDS: Amlodipine 5 MG TAB PO SCH (20:58)
[2020-03-06] MEDS: Lisinopril 20 MG TAB PO SCH (05:30)
[2020-03-06] MEDS: Hydrochlorothiazide 25 MG TAB PO SCH (05:30)
[2020-03-06] MEDS: Aspirin 81 mg Enteric Coated Tablet PO SCH ×2 (08:17→21:28)
[2020-03-06] MEDS: Ferrous Gluconate 324 MG TAB PO SCH ×2 (08:17→16:35)
[2020-03-06] MEDS: Folic Acid 1 MG TAB PO SCH (08:18)
[2020-03-06] MEDS: Finasteride 5 MG TAB PO SCH (08:18)
[2020-03-06] MEDS: Potassium Chloride 10 MEQ TAB PO SCH (08:19)
[2020-03-06] MEDS: Thiamine 100 MG TAB PO SCH (08:19)
[2020-03-06] MEDS: Calcium Carbonate 600 MG + Vit D TAB PO SCH (08:19)
[2020-03-06] MEDS: Senokot S 8.6-50 MG TAB PO SCH ×2 (08:20→21:29)
[2020-03-06] MEDS: Amlodipine 5 MG TAB PO SCH (21:28)
[2020-03-06] MEDS: Tamsulosin HCl 0.4 MG CAP PO SCH (21:28)
[2020-03-07] MEDS: Hydrochlorothiazide 25 MG TAB PO SCH (05:32)
[2020-03-07] MEDS: Lisinopril 20 MG TAB PO SCH (05:32)
[2020-03-07] MEDS: Aspirin 81 mg Enteric Coated Tablet PO SCH (08:00)
[2020-03-07] MEDS: Folic Acid 1 MG TAB PO SCH (08:00)
[2020-03-07] MEDS: Finasteride 5 MG TAB PO SCH (08:00)
[2020-03-07] MEDS: Calcium Carbonate 600 MG + Vit D TAB PO SCH (08:00)
[2020-03-07] MEDS: Potassium Chloride 10 MEQ TAB PO SCH (08:00)
[2020-03-07] MEDS: Ferrous Gluconate 324 MG TAB PO SCH (08:00)
[2020-03-07] MEDS: Senokot S 8.6-50 MG TAB PO SCH (08:01)
[2020-03-07] MEDS: Thiamine 100 MG TAB PO SCH (08:01)
[2020-03-07 08:05] VITALS: TEMP 98.2
--- NOTE | 2020-03-07 08:24 | PRG ---
DATE OF SERVICE: 03/07/2020 SUBJECTIVE: Patient of Dr. Marinelli, in the swing unit postop left hip arthroplasty. He has done well with surgery and his PT has been discontinued today; however, he cannot obtain a ride home until tomorrow, and therefore, will be discharged tomorrow. He has no complaints and feels well. OBJECTIVE: VITAL SIGNS: Blood pressure has been well controlled with blood pressure 158/72, pulse 66, O2 sats 98% on room air. LUNGS: Clear. CARDIAC: Shows regular rhythm. MUSCULOSKELETAL: Left hip arthroplasty is healing well. ASSESSMENT: 1. Resolving left hip arthroplasty. 2. Stable hypertension. 3. Compensated heart failure. PLAN: Discharge tomorrow as ride unavailable today and the patient has finished therapy. Job ID: [id number]
[2020-03-07 13:49] VITALS: BP 131/63
== END 2020-03-07 13:51 | disposition home health service (06) | DRG 560 ==
LOC: NAV ACUTE 23:05
PROVIDERS: ADMIT Internal Medicine; ATTEND Internal Medicine
DX: Z47.1 Aftercare following joint replacement surgery (principal); I50.32 Chronic diastolic (congestive) heart failure; D62 Acute posthemorrhagic anemia; Z96.642 Presence of left artificial hip joint; I11.0 Hypertensive heart disease with heart failure; J30.2 Other seasonal allergic rhinitis; N40.1 Benign prostatic hyperplasia with lower urinary tract symptoms; R33.9 Retention of urine, unspecified; Z79.899 Other long term (current) drug therapy; Z91.018 Allergy to other foods
CPT/HCPCS: 36415; 80048; 85025; 87086

== ENCOUNTER 2020-07-13 13:01 | Emergency (ER) | payer MEDICARE ==
[2020-07-13 14:07] LABS: #Eosinphils 0.1 thou/uL (0.0-0.7); #Lymphocytes 0.9 thou/uL (1.20-3.40); #Monocytes 0.3 thou/uL (0.11-0.59); #Neutrophils 1.4 thou/uL (1.40-6.50); %Basophils 1.2 % (0.0-1.0); %Eosinophils 2.7 % (0.0-10.0); %Monocytes 10.1 % (0.0-10.0); %Neutrophils 52.9 % (42.0-75.0); Hemoglobin 11.2 g/dL (14.0-18.0); Mean Corpuscular HGB CONC 29.2 g/dL (32.0-36.0); Mean Corpuscular Hemoglobin 25.1 pg (27.0-31.0); Mean Corpuscular Volume 85.8 fL (78.0-98.0); Mean Platelet Volume 10.6 fL (7.4-10.4); Platelet Count 95 thou/uL (130-400); RBC Distribution Width 15.7 % (11.5-14.5); Red Blood Cell (RBC) Count 4.47 mill/uL (4.70-6.10); White Blood Cell (WBC) Count 2.6 thou/uL (4.8-10.8)
[2020-07-13 14:16] LABS: ALT (SGPT) 13 U/L (8-55); AST (SGOT) 23 U/L (5-34); Albumin 3.7 g/dL (3.4-4.8); Alkaline Phosphatase 46 U/L (40-110); Anion Gap 12 mmol/L (10-20); BUN (Urea Nitrogen) 18 mg/dL (8.4-25.7); Bilirubin, Total 0.5 mg/dL (0.2-1.2); Calc. Creatinine Clearance 0 mL/min (70-130); Calcium 8.9 mg/dL (7.8-10.44); Carbon Dioxide 28 mmol/L (23-31); Chloride 104 mmol/L (98-107); Globulin 3.5 g/dL (2.4-3.5); Glucose 136 mg/dL (83-110); Potassium 3.1 mmol/L (3.5-5.1); Protein, Total 7.2 g/dL (5.8-8.1); Sodium 141 mmol/L (136-145)
[2020-07-13] MEDS ORDERED: Enoxaparin Sodium 100 MG/ML SYRINGE ONE (15:40)
== END 2020-07-13 16:02 | disposition short-term general hospital (02) ==
LOC: NAV ERS 13:01
DX: R60.0 Localized edema (principal); I10 Essential (primary) hypertension; Z87.891 Personal history of nicotine dependence; Z79.899 Other long term (current) drug therapy
CPT/HCPCS: 80053; 83880; 85025; 85379; 96372; 99284; J1650